=== PATIENT | female | born 1965 | race Caucasian/White ===

== ENCOUNTER 2016-10-22 11:30 | Day surgery (SDC) | payer OTHER ==
[~2016-10-22] VITALS: Ht 160 cm; Wt 90.7 kg
[~2016-10-22 11:30] MED LIST: CEFAZOLIN 1 GM IVPB PREMIX 50 ML IV ONE
[2016-10-22] MEDS ORDERED: MIDAZOLAM HCL 5 MG/ML VIAL (VERSED) IV ONE (11:31)
[2016-10-22] MEDS ORDERED: SUCCINYLCHOLINE CHLORIDE 20 MG/ML(QUELICIN) IVP ONE (11:31)
[2016-10-22] MEDS ORDERED: LR 1,000 ML IV.SOLN IV ONE (11:31)
[2016-10-22] MEDS ORDERED: ONDANSETRON HCL 4 MG/2 ML VIAL IVP ONE (11:31)
[2016-10-22] MEDS ORDERED: fentaNYL CITRATE/PF 100 MCG/2 ML AMP IVP ONE (11:31)
[2016-10-22] MEDS ORDERED: ROCURONIUM BROMIDE 10 MG/ML (ZEMURON) IV ONE (11:31)
[2016-10-22] MEDS ORDERED: SEVOFLURANE 15 MIN GAS INH ONE (11:31)
[2016-10-22] MEDS ORDERED: PROPOFOL 200MG/ 20ML VIAL (DIPRIVAN) IV ONE (11:31)
[2016-10-22] MEDS ORDERED: D5/0.45 NS 1,000 ML IV SCH (18:11)
[2016-10-22] MEDS ORDERED: HYDROmorphone 1 MG INJ. 1 MG/ML AMPUL IVP PRN (18:15)
[2016-10-22] MEDS ORDERED: HYDROcodone/ACETAMIN 5-325 MG TAB (NORCO/ VICODIN) PO PRN ×2 (18:15)
[2016-10-22 19:54] VITALS: BP_SYST 137
[2016-10-22 20:36] VITALS: BP_SYST 136
== END 2016-10-22 22:15 | disposition home or self-care (01) ==
LOC: SDS 11:30 → SMU 11:32 → SDS 22:15
PROVIDERS: ATTEND Colon & Rectal Surgery
DX: I83.811 Varicose veins of right lower extremity with pain (principal); I10 Essential (primary) hypertension; R73.01 Impaired fasting glucose; Z78.0 Asymptomatic menopausal state; E55.9 Vitamin D deficiency, unspecified; E66.01 Morbid (severe) obesity due to excess calories; Z68.35 Body mass index [BMI] 35.0-35.9, adult; Z83.3 Family history of diabetes mellitus; Z82.49 Family history of ischemic heart disease and other diseases of the circulatory system
CPT/HCPCS: 37722; 88304; J0330; J0690; J1170; J2250; J2405; J2704; J3010; J7120